=== PATIENT | male | born 1960 | race Caucasian/White ===

== ENCOUNTER 2019-01-29 22:55 | Emergency (ER) | payer MEDICAID, MEDICARE ==
[~2019-01-29] VITALS: Ht 179.1 cm; Wt 99.8 kg
[~2019-01-29 22:55] MED LIST: ALPR-475 PO; ALPR1TAB2 PO; DEXT10TA7 PO; ESCI5TAB PO; HALO5TAB5 PO; ZOLP10TA PO
[2019-01-29 22:57] VITALS: BP 130/86
--- NOTE | 2019-01-29 23:37 | NUR ---
DR. ADAN HAS BEEN IN TO EVAL PT. AND DISCUSS POC. PT. RESTING ON GURNEY WITH NADN. EVEN, NON-LABORED RESPIRATIONS VISIBLE. PT. HAS CALL LIGHT IN REACH. SKIN PWD. PT. AWAITNG X-RAY.
--- NOTE | 2019-01-30 00:01 | NUR ---
CHART UP FOR RECHECK BY PROVIDER.
== END 2019-01-30 00:34 | disposition home or self-care (01) ==
LOC: ED 23:59
DX: J45.30 Mild persistent asthma, uncomplicated (principal); F17.200 Nicotine dependence, unspecified, uncomplicated
CPT/HCPCS: 71046; 93005; 99283

== ENCOUNTER 2019-03-22 14:43 | Outpatient (CLI) | payer MEDICARE, MEDICAID | END 2019-03-22 23:59 | disposition home or self-care (01) | LOC: CFH 14:43 | PROVIDERS: ATTEND Neurological Surgery | DX: M47.813 Spondylosis without myelopathy or radiculopathy, cervicothoracic region (principal); M48.03 Spinal stenosis, cervicothoracic region | CPT/HCPCS: 72050; 72141 ==

== ENCOUNTER 2019-09-04 03:24 | Emergency (ER) | payer MEDICARE, MEDICAID ==
[~2019-09-04] VITALS: Ht 177.8 cm; Wt 95.8 kg
[~2019-09-04 03:24] MED LIST changes: -ALPR-475 PO; +ALPR0.5T7 PO
[2019-09-04 03:34] VITALS: BP 116/79
--- NOTE | 2019-09-04 03:56 | NUR ---
PT STATES "MY SCIATICA IS BOTHERING ME AND I CAN'T SLEEP". PT STATES HE HAS A HISTORY OF LOW BACK PAIN AND DOES NOT HAVE A PCP AT THIS TIME. per triage note
[2019-09-04] MEDS ORDERED: KETOROLAC 60 MG/2 ML ONE (04:14)
[2019-09-04] MEDS ORDERED: METHOCARBAMOL 750 MG TABLET ONE (04:14)
--- NOTE | 2019-09-04 04:28 | NUR ---
meds given dc instruction was given pt up ambulated to check out
[2019-09-04] MEDS ORDERED: METHOCARBAMOL 750 MG TABLET PO ONE (04:30)
[2019-09-04] MEDS ORDERED: KETOROLAC 30 MG/1 ML IM ONE (04:30)
== END 2019-09-04 04:30 | disposition home or self-care (01) ==
LOC: ED 04:20
DX: M54.42 Lumbago with sciatica, left side (principal); M54.41 Lumbago with sciatica, right side; J45.909 Unspecified asthma, uncomplicated; F17.210 Nicotine dependence, cigarettes, uncomplicated
CPT/HCPCS: 96372; 99283; J1885

== ENCOUNTER 2019-09-08 15:25 | Emergency (ER) | payer MEDICAID, MEDICARE ==
[~2019-09-08] VITALS: Ht 172.7 cm; Wt 95.1 kg
[2019-09-08 15:30] VITALS: BP 126/75
--- NOTE | 2019-09-08 15:35 | NUR ---
PT HERE FOR NEW MEDICATIONS PER PT ROBAXIN WAS NOT FILLED INSURANCE WOULD NOT COVERED.
== END 2019-09-08 15:48 | disposition home or self-care (01) ==
LOC: ED 15:30
DX: S39.012A Strain of muscle, fascia and tendon of lower back, initial encounter (principal); I10 Essential (primary) hypertension; J45.909 Unspecified asthma, uncomplicated; F17.200 Nicotine dependence, unspecified, uncomplicated; Z76.0 Encounter for issue of repeat prescription; X58.XXXA Exposure to other specified factors, initial encounter; Y93.89 Activity, other specified; Y92.89 Other specified places as the place of occurrence of the external cause; Y99.8 Other external cause status
CPT/HCPCS: 99283

== ENCOUNTER 2019-09-19 20:24 | Emergency (ER) | payer MEDICARE ==
[~2019-09-19] VITALS: Ht 177.8 cm; Wt 97.3 kg
[2019-09-19 20:31] VITALS: BP 136/83
[2019-09-19] MEDS ORDERED: LORA-446 PO (20:50)
[2019-09-19] MEDS ORDERED: KETOROLAC 30 MG/1 ML ONE (20:52)
[2019-09-19] MEDS ORDERED: METHOCARBAMOL 750 MG TABLET ONE (20:52)
[2019-09-19] MEDS ORDERED: KETOROLAC 30 MG/1 ML IM ONE (21:00)
[2019-09-19] MEDS ORDERED: METHOCARBAMOL 750 MG TABLET PO ONE (21:00)
== END 2019-09-19 21:23 | disposition home or self-care (01) ==
LOC: ED 21:19
DX: S39.012A Strain of muscle, fascia and tendon of lower back, initial encounter (principal); G89.29 Other chronic pain; J45.909 Unspecified asthma, uncomplicated; X58.XXXA Exposure to other specified factors, initial encounter; Y93.89 Activity, other specified; Y92.89 Other specified places as the place of occurrence of the external cause; Y99.8 Other external cause status
CPT/HCPCS: 96372; 99283; J1885

== ENCOUNTER 2019-10-24 17:47 | Emergency (ER) | payer MEDICARE, MEDICAID ==
[~2019-10-24] VITALS: Ht 180.3 cm; Wt 98.0 kg
[~2019-10-24 17:47] MED LIST changes: +LORA-446 PO
[2019-10-24 17:51] VITALS: BP 133/82
[2019-10-24] MEDS ORDERED: CYCLOBENZAPRINE 10 MG TABLET ONE (18:12)
[2019-10-24] MEDS ORDERED: ACETAMINOPHEN 500 MG TABLET ONE (18:12)
[2019-10-24] MEDS ORDERED: KETOROLAC 30 MG/1 ML ONE (18:12)
[2019-10-24] MEDS ORDERED: CYCLOBENZAPRINE 10 MG TABLET PO ONE (18:30)
[2019-10-24] MEDS ORDERED: ACETAMINOPHEN 500 MG TABLET PO ONE (18:30)
[2019-10-24] MEDS ORDERED: KETOROLAC 30 MG/1 ML IM ONE (18:30)
== END 2019-10-24 19:29 | disposition home or self-care (01) ==
LOC: ED 18:47
DX: M51.16 Intervertebral disc disorders with radiculopathy, lumbar region (principal); I10 Essential (primary) hypertension; J45.909 Unspecified asthma, uncomplicated; F17.200 Nicotine dependence, unspecified, uncomplicated
CPT/HCPCS: 72110; 99283

== ENCOUNTER 2019-10-27 16:43 | Emergency (ER) | payer MEDICARE, MEDICAID ==
[~2019-10-27] VITALS: Ht 170.2 cm; Wt 97.5 kg
[2019-10-27 16:45] VITALS: BP 133/80
--- NOTE | 2019-10-27 17:02 | NUR ---
PT BROUGHT BACK FROM TRIAGE WITH CHIEF COMPLAINT OF LEFT LOWER BACK PAIN WORSENING OVER THREE DAYS. HERE AT [facility] ED 10/23.
[2019-10-27] MEDS ORDERED: DIAZEPAM 5 MG TABLET ONE (17:17)
[2019-10-27] MEDS ORDERED: KETOROLAC 30 MG/1 ML ONE (17:17)
[2019-10-27] MEDS ORDERED: KETOROLAC 30 MG/1 ML IM ONE (17:30)
[2019-10-27] MEDS ORDERED: DIAZEPAM 5 MG TABLET PO ONE (17:30)
--- NOTE | 2019-10-27 18:36 | NUR ---
DISCHARGE INSTRUCTIONS REVIEWED
== END 2019-10-27 18:38 | disposition home or self-care (01) ==
LOC: ED 17:00
DX: S39.012A Strain of muscle, fascia and tendon of lower back, initial encounter (principal); J45.909 Unspecified asthma, uncomplicated; I10 Essential (primary) hypertension; Z88.1 Allergy status to other antibiotic agents; X58.XXXA Exposure to other specified factors, initial encounter; Y93.89 Activity, other specified; Y92.89 Other specified places as the place of occurrence of the external cause; Y99.8 Other external cause status
CPT/HCPCS: 96372; 99283; J1885

== ENCOUNTER 2020-06-05 14:19 | Emergency (ER) | payer MEDICARE, MEDICAID ==
[~2020-06-05] VITALS: Ht 175.3 cm; Wt 92.4 kg
[2020-06-05 14:28] VITALS: BP 119/76
[2020-06-05 15:31] LABS: BASOPHILS % (AUTO) 1 % (0-1); EOSINOPHILS % (AUTO) 3 % (1-7); LYMPHOCYTES % (AUTO) 35 % (22-44); MEAN CORPUSCULAR HEMOGLOBIN 32.7 pg (27.5-34.5); MEAN CORPUSCULAR HGB CONC 34.2 g/dL (33.2-36.2); MEAN PLATELET VOLUME 6.4 fL (7.4-10.4); MONOCYTES % (AUTO) 13 % (2-9); NEUTROPHILS % (AUTO) 48 % (42-75); PLATELET COUNT 370 x10^3/uL (130-400); RED BLOOD COUNT 4.49 x10^6/uL (4.38-5.82); RED CELL DISTRIBUTION WIDTH 12.8 % (9.4-14.8)
[2020-06-05 15:34] LABS: MD NO
[2020-06-05 15:37] LABS: ALANINE AMINOTRANSFERASE 64 U/L (12-78); ALBUMIN 3.8 g/dL (3.4-5.0); ANION GAP 5 mmol/L (5-15); CALCIUM 9.5 mg/dL (8.5-10.1); CHLORIDE 109 mmol/L (98-107); CREATININE 1.02 mg/dL (0.7-1.3)
[2020-06-05 15:40] LABS: ALKALINE PHOSPHATASE 68 U/L (45-117); BILIRUBIN,TOTAL 0.4 mg/dL (0.2-1.0)
[2020-06-05] MEDS ORDERED: IBUPROFEN 200 MG TABLET PO ONE (17:00)
[2020-06-05] MEDS ORDERED: IBUPROFEN 600 MG TABLET ONE (17:01)
== END 2020-06-05 17:10 | disposition home or self-care (01) ==
LOC: ED 16:14
DX: M51.36 Other intervertebral disc degeneration, lumbar region (principal); G89.29 Other chronic pain; I10 Essential (primary) hypertension; J45.909 Unspecified asthma, uncomplicated; F17.200 Nicotine dependence, unspecified, uncomplicated
CPT/HCPCS: 36415; 72110; 80053; 85025; 99284

== ENCOUNTER 2020-06-21 12:50 | Emergency (ER) | payer MEDICARE, MEDICAID ==
[~2020-06-21] VITALS: Ht 177.8 cm; Wt 92.1 kg
--- NOTE | 2020-06-21 13:37 | NUR ---
PATTERN MAKER: PT TO ROOM FROM LOBBY
[2020-06-21] MEDS ORDERED: LORazepam 1MG TABLET PO ONE (14:00)
--- NOTE | 2020-06-21 14:09 | NUR ---
Pt c/o "buzzing" in is head and states he has neck pain from titatnium rods. Pt denies chest pain, shortness of breath or N/V/diarrhea.
--- NOTE | 2020-06-21 14:09 | NUR ---
Psych provider bedside.
[2020-06-21] MEDS ORDERED: HALOPERIDOL 5 MG TABLET ONE (14:20)
[2020-06-21] MEDS ORDERED: BENZTROPINE 1 MG TABLET ONE (14:21)
[2020-06-21 14:25] VITALS: BP 128/86
[2020-06-21] MEDS ORDERED: BENZTROPINE 1 MG TABLET PO ONE (14:30)
[2020-06-21] MEDS ORDERED: HALOPERIDOL 5 MG TABLET PO ONE (14:30)
--- NOTE | 2020-06-21 16:01 | NUR ---
Patient given discharge instructions and they have confirmed that they understand the instructions. Patient ambulatory with steady gait.
== END 2020-06-21 16:02 | disposition home or self-care (01) ==
LOC: ED 13:52
DX: F25.9 Schizoaffective disorder, unspecified (principal); F29 Unspecified psychosis not due to a substance or known physiological condition; Z91.14 Patient's other noncompliance with medication regimen; I10 Essential (primary) hypertension; J45.909 Unspecified asthma, uncomplicated; Z87.891 Personal history of nicotine dependence
CPT/HCPCS: 99284